=== PATIENT | male | born 1975 | race Caucasian/White ===

== ENCOUNTER 2019-02-21 15:27 | Emergency (ER) | payer MEDICARE ==
[~2019-02-21] VITALS: Ht 185.4 cm; Wt 127.0 kg
[~2019-02-21 15:27] MED LIST: AMBIEN10 M1 PO; ATORVASTATIN CA10 M1 PO; BAYER ASPIRIN C81 MG PO; BENTYL10 MG PO; CARAFATE1 G1 PO; CELEXA20 MG PO; CLOPIDOGREL75 MG PO; CYCLOBENZAPRINE10 MG PO; FAMOTIDINE20 M1 PO; IMDUR SA60 M1 PO; LASIX20 MG PO; METOPROLOL SUC100 M1 PO; PAXIL20 MG PO; PRILOSEC20 M1 PO; RESTORIL30 MG PO; SEPTDS PO; TOPROL XL50 M1 PO; VICODIN 500 MG-1 TAB PO; XANAX1 MG PO; XARE20MG PO
== END 2019-02-21 17:12 | disposition home or self-care (01) ==
LOC: ED 15:27
DX: M25.532 Pain in left wrist (principal); I73.9 Peripheral vascular disease, unspecified; Z79.2 Long term (current) use of antibiotics; Z79.899 Other long term (current) drug therapy; Z79.82 Long term (current) use of aspirin; Z89.422 Acquired absence of other left toe(s); Z87.891 Personal history of nicotine dependence

== ENCOUNTER 2020-10-14 10:20 | Emergency (ER) | payer OTHER, MEDICARE ==
[~2020-10-14] VITALS: Ht 185.4 cm; Wt 133.8 kg
[2020-10-14 10:51] LABS: BASO # 0.1 10*3/uL (0.0-0.1); BASO % 0.8 % (0.0-1.0); EOS # 0.2 10*3/uL (0.0-0.4); EOS % 2.2 % (1.0-4.0); HEMATOCRIT 45.9 % (42.0-52.0); LYMPH # 2.5 10*3/uL (1.3-4.4); MEAN CELL VOLUME 87.9 fl (80.0-94.0); MEAN CORPUSCULAR HGB 30.5 pg (27.0-31.0); MEAN CORPUSCULAR HGB CONC 34.6 g/dl (33.0-37.0); MEAN PLATELET VOLUME 9.7 fl (9.6-12.3); MONO # 0.7 10*3/uL (0.1-1.0); MONO % 7.4 % (3.0-9.0); NEUT # 5.3 10*3/uL (2.3-7.9); PLATELET COUNT AUTOMATED 275 10*3/uL (130-400); RED BLOOD COUNT 5.22 10*6/uL (4.50-5.90); RED CELL DISTRI WIDTH 13.1 % (0-14.5); WHITE BLOOD COUNT 8.8 10*3/uL (4.8-10.8)
[2020-10-14 11:05] LABS: ALBUMIN 3.2 gm/dl (3.1-4.5); ALKALINE PHOSPHATASE 86 U/L (45-117); BUN 9 mg/dl (7-24); CHLORIDE 108 mmol/L (98-107); CREATININE 1.15 mg/dL (0.70-1.30); LIPASE 151 U/L (73-393); POTASSIUM 3.7 mmol/L (3.5-5.1); SGOT/AST 12 IU/L (3-35); SGPT/ALT 19 U/L (12-78); SODIUM 138 mmol/L (136-145); TOTAL PROTEIN 7.7 gm/dL (6.4-8.2)
[2020-10-14 12:19] LABS: BILIRUBIN Negative (Negative); BLOOD Negative (Negative); CLARITY Clear (Clear); COLOR Yellow (Yellow); GLUCOSE Negative (Negative); KETONE Negative (Negative); LEUKO ESTERASE Negative (Negative); NITRITE Negative (Negative); SPECIFIC GRAVITY <= 1.005 (1.001-1.030); UROBILINOGEN 0.2 E.U./dl (0.0-1.0)
[2020-10-14 12:44] LABS: RBC 0-2 rbc/hpf (0-2); WBC 0-2 wbc/hpf (0-5)
[2020-10-14] MEDS ORDERED: CARAFATE1 G1 PO (12:56)
== END 2020-10-14 13:03 | disposition home or self-care (01) ==
LOC: ED 10:20
PROVIDERS: Family Medicine
DX: K76.0 Fatty (change of) liver, not elsewhere classified (principal); R73.9 Hyperglycemia, unspecified; Z88.8 Allergy status to other drugs, medicaments and biological substances; Z79.899 Other long term (current) drug therapy; Z98.890 Other specified postprocedural states

== ENCOUNTER 2024-10-05 13:24 | Emergency (ER) | payer MEDICARE, MEDICAID ==
[~2024-10-05] VITALS: Ht 182.8 cm; Wt 106.1 kg
[2024-10-05] MEDS ORDERED: HYDROmorphone Hydrochloride 1 MG/ML SYR IM ONE (14:05)
[2024-10-05] MEDS ORDERED: Ondansetron Hydrochloride 4 MG TAB SL ONE (14:10)
[2024-10-05] MEDS ORDERED: HYDROCODONE-AC1 EAC1 PO (16:10)
== END 2024-10-05 16:25 | disposition home or self-care (01) ==
LOC: ED 13:24
DX: M50.223 Other cervical disc displacement at C6-C7 level (principal); Z98.2 Presence of cerebrospinal fluid drainage device; Z79.899 Other long term (current) drug therapy; Z98.890 Other specified postprocedural states

== ENCOUNTER → 2024-12-04 | Outpatient (CLI) | payer MEDICARE, MEDICAID ==
[~2024-12-04] MED LIST changes: +HYDROCODONE-AC1 EAC1 PO
== END ==
LOC: MRI 07:34
PROVIDERS: ATTEND Family Medicine
DX: M54.12 Radiculopathy, cervical region (principal); M48.02 Spinal stenosis, cervical region; M25.512 Pain in left shoulder; M43.23 Fusion of spine, cervicothoracic region; M25.78 Osteophyte, vertebrae

== ENCOUNTER → 2024-12-08 | Outpatient (CLI) | payer MEDICARE, MEDICAID ==
[2024-12-08 08:44] LABS: BUN 16 mg/dl (9-23); LDL CHOLESTEROL 83 mg/dL (9-159)
[2024-12-08 08:45] LABS: SGPT/ALT < 7 U/L (5-49)
== END | disposition home or self-care (01) ==
LOC: LAB 07:42
PROVIDERS: Student in an Organized Health Care Education/Training Program; ATTEND Internal Medicine Endocrinology, Diabetes & Metabolism
DX: E11.9 Type 2 diabetes mellitus without complications (principal); E78.5 Hyperlipidemia, unspecified

== ENCOUNTER 2025-02-24 20:35 | Emergency (ER) | payer MEDICARE ==
[~2025-02-24] VITALS: Ht 185.4 cm; Wt 107.0 kg
[2025-02-24 21:08] LABS: BASO # 0.1 10*3/uL (0.0-0.1); BASO % 0.4 % (0.0-1.0); EOS # 0.3 10*3/uL (0.0-0.4); EOS % 2.9 % (1.0-4.0); MEAN CELL VOLUME 92.0 fl (80.0-94.0); MEAN CORPUSCULAR HGB 31.5 pg (27.0-31.0); MEAN PLATELET VOLUME 9.4 fl (9.6-12.3); MONO # 0.9 10*3/uL (0.1-1.0); MONO % 8.0 % (3.0-9.0); NEUT # 6.1 10*3/uL (2.3-7.9); NEUT % 52.7 % (47.0-73.0); NUCLEATED RED BLOOD CELL 0.0 % (0.0-0.0); NUCLEATED RED BLOOD CELL 0.0 10*3/uL (0.0-0.0); PLATELET COUNT AUTOMATED 279 10*3/uL (130-400); RED CELL DISTRI WIDTH 12.8 % (0-14.5)
[2025-02-24 21:29] LABS: BUN 13 mg/dl (9-23)
[2025-02-24] MEDS ORDERED: VIBRAMYCIN100 MG PO (22:04)
[2025-02-24] MEDS ORDERED: PREDNISONE20 M1 PO (22:04)
== END 2025-02-24 22:23 | disposition home or self-care (01) ==
LOC: ED 20:35
PROVIDERS: Internal Medicine
DX: M25.531 Pain in right wrist (principal); R22.31 Localized swelling, mass and lump, right upper limb; I25.10 Atherosclerotic heart disease of native coronary artery without angina pectoris; Z87.891 Personal history of nicotine dependence; Z98.890 Other specified postprocedural states; Z91.018 Allergy to other foods

== ENCOUNTER → 2025-03-25 | Outpatient (CLI) | payer MEDICARE, MEDICAID ==
[~2025-03-25] MED LIST changes: +PREDNISONE20 M1 PO; +VIBRAMYCIN100 MG PO
[2025-03-25 13:50] LABS: BUN 10 mg/dl (9-23); LDL CHOLESTEROL 50 mg/dL (9-159); SGPT/ALT 14 U/L (5-49)
== END | disposition home or self-care (01) ==
LOC: LAB 12:54
PROVIDERS: Student in an Organized Health Care Education/Training Program; ATTEND Internal Medicine Endocrinology, Diabetes & Metabolism
DX: E11.9 Type 2 diabetes mellitus without complications (principal)

== ENCOUNTER 2025-04-01 18:51 | Emergency (ER) | payer MEDICARE, MEDICAID ==
[~2025-04-01] VITALS: Ht 185.4 cm; Wt 106.1 kg
[2025-04-01] MEDS ORDERED: Gelatin Sponge 1 EACH SPON T ONE (20:25)
[2025-04-01] MEDS ORDERED: Bacitracin Zinc 14 GM TUBE T ONE (20:25)
== END 2025-04-01 20:47 | disposition home or self-care (01) ==
LOC: ED 18:51
DX: R58 Hemorrhage, not elsewhere classified (principal); R19.8 Other specified symptoms and signs involving the digestive system and abdomen; I25.10 Atherosclerotic heart disease of native coronary artery without angina pectoris; E66.9 Obesity, unspecified; E78.5 Hyperlipidemia, unspecified; I10 Essential (primary) hypertension; I25.2 Old myocardial infarction; Z91.018 Allergy to other foods; Z79.82 Long term (current) use of aspirin; Z79.899 Other long term (current) drug therapy; Z98.890 Other specified postprocedural states; Z89.422 Acquired absence of other left toe(s); Z87.891 Personal history of nicotine dependence